=== PATIENT | female | born 1955 | race Caucasian/White ===

== ENCOUNTER → 2024-10-07 | Outpatient (REF) | payer MEDICARE ==
[2024-10-07 13:52] LABS: PTH INTACT 94.1 PG/ML (18.5-88.0)
[2024-10-07 13:54] LABS: PERCENT SATURATION 17.6 % (13.2-45.0)
[2024-10-07 13:56] LABS: FERRITIN 20.3 NG/ML (7.3-270.7)
== END ==
LOC: M LAB REF 12:41
PROVIDERS: ATTEND Internal Medicine
DX: E83.52 Hypercalcemia (principal); E61.1 Iron deficiency

== ENCOUNTER → 2025-01-23 | Outpatient (REF) | payer MEDICARE ==
[2025-01-23 18:41] LABS: PTH INTACT 53.1 PG/ML (18.5-88.0)
[2025-01-23 18:43] LABS: PERCENT SATURATION 26.3 % (13.2-45.0)
[2025-01-23 18:46] LABS: FERRITIN 8.2 NG/ML (7.3-270.7)
== END ==
LOC: M LAB REF 17:15
PROVIDERS: ATTEND Internal Medicine
DX: E83.52 Hypercalcemia (principal)

== ENCOUNTER → 2025-02-26 | Outpatient (CLI) | payer MEDICARE ==
[~2025-02-26] MED LIST: METHACHOLINE KIT (6 VIAL.NEB PREMIX) INH ONE
== END ==
LOC: M CARPUL 07:35
PROVIDERS: ATTEND Internal Medicine
DX: R06.00 Dyspnea, unspecified (principal)
CPT/HCPCS: 94070; 95070; J7674

== ENCOUNTER → 2025-05-16 | Outpatient (CLI) | payer MEDICARE | LOC: M SOG 07:19 | PROVIDERS: ATTEND Orthopaedic Surgery | DX: M25.561 Pain in right knee (principal) ==

== ENCOUNTER → 2025-10-10 | Outpatient (REF) | payer MEDICARE | LOC: M LAB REF 12:12 | PROVIDERS: ATTEND Internal Medicine | DX: E83.52 Hypercalcemia (principal) ==